=== PATIENT | female | born 1960 | race Caucasian/White ===

== ENCOUNTER 2018-09-08 13:13 | Emergency (ER) | payer BC ==
--- NOTE | 2018-09-08 14:40 | ER ---
Nurse's Notes [facility] Name: Yeny Fink Age: 57 yrs Sex: Female : 1960 Arrival Date: 09/08/2018 Time: 13:14 Bed 24 Private MD: Demond Santos E Diagnosis: Headache Presentation: 09/08 13:17 Presenting complaint: Patient states: General anxiety with headache and "high blood aj pressure" that started today. Transition of care: patient was not received from another setting of care. Onset of symptoms was September 08, 2018. Risk Assessment: Do you want to hurt yourself or someone else? Patient reports no desire to harm self or others. Initial Sepsis Screen: Does the patient meet any 2 criteria? No. Patient's initial sepsis screen is negative. Does the patient have a suspected source of infection? No. Patient's initial sepsis screen is negative. Care prior to arrival: None. 13:17 Method Of Arrival: Ambulatory 13:17 Acuity: ANILA 3 Triage Assessment: 13:18 Headache History: The patient has had previous headaches and this one is similar to aj previous episodes. General: Appears in no apparent distress. comfortable, Behavior is calm, cooperative, appropriate for age. Neuro: Level of Consciousness is awake, alert, obeys commands, Oriented to person, place, time, situation, Appropriate for age Reports headache. Respiratory: Airway is patent Respiratory effort is even, unlabored, Respiratory pattern is regular, symmetrical. Derm: Skin is intact, is healthy with good turgor, Skin is pink, warm \\T\\ dry. normal. 14:51 Pain: Also complains of. 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 - Social history:: Smoking status: Patient/guardian denies using tobacco. - Ebola Screening: : Patient negative for fever greater than or equal to 101.5 degrees Fahrenheit, and additional compatible Ebola Virus Disease symptoms Patient denies exposure to infectious person Patient denies travel to an Ebola-affected area in the 21 days before illness onset No symptoms or risks identified at this time. Screenin:56 Abuse screen: Denies threats or abuse. Nutritional screening: No deficits noted. la1 Tuberculosis screening: No symptoms or risk factors identified. Fall Risk None identified. Assessment: 13:55 General: Appears in no apparent distress. Behavior is calm, cooperative. Pain: la1 Complains of pain in head. 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 Gait is steady, Speech is normal, Facial symmetry appears normal, Pupils are PERRLA. Cardiovascular: Capillary refill < 3 seconds Patient's skin is warm and dry. Respiratory: Airway is patent Respiratory effort is even, unlabored, Respiratory pattern is regular, symmetrical. GI: No signs and/or symptoms were reported involving the gastrointestinal system. : No signs and/or symptoms were reported regarding the genitourinary system. Vital Signs: 13:18 BP 161 / 91; Pulse 82; Resp 16; Temp 97.8; Pulse Ox 100% on R/A; Weight 76.2 kg; Height aj 5 ft. 3 in. (160.02 cm); 14:42 BP 143 / 64; Pulse 71; Resp 16; Pulse Ox 98% on R/A; la1 13:18 Body Mass Index 29.76 (76.20 kg, 160.02 cm) aj Pageland Coma Score: 15:17 Eye Response: spontaneous(4). Verbal Response: oriented(5). Motor Response: obeys snw commands(6). Total: 15. ED Course: 13:14 Patient arrived in ED. as 13:14 Demond Santos MD is Private Physician. as 13:18 Triage completed. aj 13:18 Arm band placed on left wrist. Patient placed in an exam room. aj 13:21 Eloy Murphy, BIN is Primary Nurse. la1 13:34 Tanmay Florez MD is Attending Physician. betty 13:34 Edilma Zamorano FNP-C [facility] snw 13:56 Call light in reach. Side rails up X 1. la1 14:38 Demond Santos MD is Referral Physician. snw 14:42 No provider procedures requiring assistance completed. Patient did not have IV access la1 during this emergency room visit. Administered Medications: No medications were administered Outcome: 14:39 Discharge ordered by . gallo 14:52 Discharged to home ambulatory. la1 14:52 Condition: stable 14:52 Discharge instructions given to patient, Instructed on discharge instructions, follow up and referral plans. Demonstrated understanding of instructions, follow-up care. 14:52 Patient left the ED. la1 Signatures: Larissa Tuttle, RN Tanmay Rich MD MD cha Therrien, Shelly, HEALTH ADMINISTRATION TEACHER-C HEALTH ADMINISTRATION TEACHER-Csnw Agnieszka Anders Lee, RN RN la1
--- NOTE | 2018-09-08 14:40 | EDPHYS ---
Physician Documentation [facility] Name: Yeny Fink Age: 57 yrs Sex: Female : 1960 Arrival Date: 09/08/2018 Time: 13:14 Bed 24 Private MD: Demond Santos E ED Physician Tanmay Florez HPI: 09/08 15:28 This 57 yrs old Female presents to ER via Ambulatory with complaints of snw Headache, Nausea, High Blood Pressure. 15:28 The patient complains of pain to the top of head. The patient describes the headache as snw a pressure. Onset: The symptoms/episode began/occurred acutely, and improved. Associated signs and symptoms: Pertinent positives: noted bp was elevated and became nervous. Headache History: Denies prior headaches. The symptoms are alleviated by remaining still, advil/aspirin. The patient has not experienced similar symptoms in the past. The patient has been recently seen by a physician: Physical for insurance. 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 - Social history:: Smoking status: Patient/guardian denies using tobacco. - Ebola Screening: : Patient negative for fever greater than or equal to 101.5 degrees Fahrenheit, and additional compatible Ebola Virus Disease symptoms Patient denies exposure to infectious person Patient denies travel to an Ebola-affected area in the 21 days before illness onset No symptoms or risks identified at this time. ROS: 15:14 Constitutional: Negative for fever, chills, and weight loss, Eyes: Negative for injury, snw pain, redness, and discharge, ENT: Negative for injury, pain, and discharge, Neck: Negative for injury, pain, and swelling, Cardiovascular: Negative for chest pain, palpitations, and edema, Respiratory: Negative for shortness of breath, cough, wheezing, and pleuritic chest pain, Abdomen/GI: Negative for abdominal pain, nausea, vomiting, diarrhea, and constipation, Back: Negative for injury and pain, : Negative for injury, bleeding, discharge, and swelling, MS/Extremity: Negative for injury and deformity, Skin: Negative for injury, rash, and discoloration. 15:14 Neuro: Positive for headache. Exam: 15:14 Constitutional: This is a well developed, well nourished patient who is awake, alert, snw and in no acute distress. Head/Face: Normocephalic, atraumatic. Eyes: Pupils equal round and reactive to light, extra-ocular motions intact. Lids and lashes normal. Conjunctiva and sclera are non-icteric and not injected. Cornea within normal limits. Periorbital areas with no swelling, redness, or edema. ENT: Nares patent. No nasal discharge, no septal abnormalities noted. Tympanic membranes are normal and external auditory canals are clear. Oropharynx with no redness, swelling, or masses, exudates, or evidence of obstruction, uvula midline. Mucous membranes moist. Neck: Trachea midline, no thyromegaly or masses palpated, and no cervical lymphadenopathy. Supple, full range of motion without nuchal rigidity, or vertebral point tenderness. No Meningismus. Chest/axilla: Normal chest wall appearance and motion. Nontender with no deformity. No lesions are appreciated. Cardiovascular: Regular rate and rhythm with a normal S1 and S2. No gallops, murmurs, or rubs. Normal PMI, no JVD. No pulse deficits. Mild peripheral edema Respiratory: Lungs have equal breath sounds bilaterally, clear to auscultation and percussion. No rales, rhonchi or wheezes noted. No increased work of breathing, no retractions or nasal flaring. Abdomen/GI: Soft, non-tender, with normal bowel sounds. No distension or tympany. No guarding or rebound. No evidence of tenderness throughout. Back: No spinal tenderness. No costovertebral tenderness. Full range of motion. Skin: Warm, dry with normal turgor. Normal color with no rashes, no lesions, and no evidence of cellulitis. MS/ Extremity: Pulses equal, no cyanosis. Neurovascular intact. Full, normal range of motion. Neuro: Awake and alert, GCS 15, oriented to person, place, time, and situation. Cranial nerves II-XII grossly intact. Motor strength 5/5 in all extremities. Sensory grossly intact. Cerebellar exam normal. Normal gait. Psych: Awake, alert, with orientation to person, place and time. Behavior, mood, and affect are within normal limits. Vital Signs: 13:18 BP 161 / 91; Pulse 82; Resp 16; Temp 97.8; Pulse Ox 100% on R/A; Weight 76.2 kg; Height aj 5 ft. 3 in. (160.02 cm); 14:42 BP 143 / 64; Pulse 71; Resp 16; Pulse Ox 98% on R/A; la1 13:18 Body Mass Index 29.76 (76.20 kg, 160.02 cm) aj Melvin Coma Score: 15:17 Eye Response: spontaneous(4). Verbal Response: oriented(5). Motor Response: obeys snw commands(6). Total: 15. MDM: 13:34 Patient medically screened. [facility] 15:17 Data reviewed: vital signs, nurses notes. Data interpreted: Pulse oximetry: on room air snw is 98 %. Counseling: I had a detailed discussion with the patient and/or guardian regarding: the historical points, exam findings, and any diagnostic results supporting the discharge/admit diagnosis, the presence of at least one elevated blood pressure reading (>120/80) during this emergency department visit, the need for outpatient follow up, to return to the emergency department if symptoms worsen or persist or if there are any questions or concerns that arise at home, smoking cessation. Special discussion: I have referred the patient to see his PCP for further evaluation of high blood pressure. Based on the history and exam findings, there is no indication for further emergent testing or inpatient evaluation. I discussed with the patient/guardian the need to see the primary care provider for further evaluation of the symptoms. 15:32 Refusal of service: The patient/guardian displays adequate decision making capability snw and despite a detailed discussion of alternatives, benefits, risks, and consequences refuses: CT Scan. 09/08 14:21 Order name: EKG; Complete Time: 14:21 snw 09/08 14:21 Order name: EKG - Nurse/Tech; Complete Time: 14:41 snw Administered Medications: No medications were administered Disposition: 09/09 09:07 Co-signature as Attending Physician, Tanmay Florez MD I agree with the assessment and betty plan of care. Disposition: 09/08/18 14:39 Discharged to Home. Impression: Headache. - Condition is Stable. - Discharge Instructions: Edema, Hypertension, Aspirin and Your Heart, Form - Blood Pressure Record Sheet. - Work release form, Medication Reconciliation Form, Thank You Letter, Antibiotic Education, Prescription Opioid Use form. - Follow up: Demond Santos MD; When: 2 - 3 days; Reason: Recheck today's complaints, Continuance of care, Re-evaluation by your physician. Follow up: Emergency Department; When: As needed; Reason: Worsening of condition. Signatures: Larissa Tuttle RN RN Tanmay He MD MD cha Therrien, Shelly, MONCIA-C INPATIENT CARE MANAGER RN-Csnw Eloy Murphy RN RN la1 Corrections: (The following items were deleted from the chart) 09/08 14:52 14:39 09/08/2018 14:39 Discharged to Home. Impression: Headache. Condition is Stable. la1 Forms are Medication Reconciliation Form, Thank You Letter, Antibiotic Education, Prescription Opioid Use. Follow up: Demond Santos; When: 2 - 3 days; Reason: Recheck today's complaints, Continuance of care, Re-evaluation by your physician. Follow up: Emergency Department; When: As needed; Reason: Worsening of condition. snw
--- NOTE | 2018-09-09 09:20 | EKG ---
Test Date: 2018-09-08 Test Time: 14:34:13 Legal Researcher: [place] MEASUREMENT RESULTS: Intervals: Rate: 70 IL: 118 QRSD: 80 QT: 390 QTc: 421 [place]: P: 32 IL: 118 QRS: 41 T: 39 INTERPRETIVE STATEMENTS: Normal sinus rhythm Normal ECG No previous ECG available for comparison Electronically Signed On 09-09-18 09:19:11 CDT by Hernán Hernandez
== END 2018-09-08 14:52 | disposition home or self-care (01) ==
LOC: ER 13:13
DX: R51 Headache (principal); Z88.0 Allergy status to penicillin
CPT/HCPCS: 93005; 99281